=== PATIENT | male | born 1975 ===

== ENCOUNTER 2018-12-20 13:50 | Emergency (ER) | payer SELFPAY ==
[2018-12-20 13:54] VITALS: BMI 27.2
[2018-12-20 13:55] VITALS: RESP 18; TEMP 98.7
--- NOTE | 2018-12-20 14:48 | C.PDOC ---
History Of Present Illness 43 y/o male, otherwise well, presents to the ED for evaluation of rash that to the bilateral arms that began suddenly 2 days ago. On arrival he appears to have circular, slightly raised lesions that are scaly, not pruritic. The rash has now spread to his chest and neck. No fever or chills. No recent illness. Time Seen by Provider: 12/20/18 14:01 Chief Complaint (Nursing): Abnormal Skin Integrity History Per: Patient History/Exam Limitations: no limitations Onset/Duration Of Symptoms: Days Current Symptoms Are (Timing): Still Present Location Of Injury: Right: Arm, Left: Arm Quality Of Symptoms: denies: Itching Past Medical History Reviewed: Historical Data, Nursing Documentation, Vital Signs Vital Signs: Last Vital Signs Temp 98.7 F 12/20/18 13:54 Pulse 77 12/20/18 13:54 Resp 18 12/20/18 13:54 BP 142/82 12/20/18 13:54 Pulse Ox 99 12/20/18 13:54 Surgical History: Hernia Repair Other Surgeries: Orthopedic surgery Family History: States: Unknown Family Hx - Social History Hx Alcohol Use: Yes Hx Substance Use: No - Immunization History Hx Tetanus Toxoid Vaccination: No Hx Influenza Vaccination: No Hx Pneumococcal Vaccination: No Review Of Systems Constitutional: Negative for: Fever, Chills Cardiovascular: Negative for: Chest Pain Respiratory: Negative for: Cough, Shortness of Breath Gastrointestinal: Negative for: Nausea, Vomiting Skin: Positive for: Rash (to bilateral arms, chest, neck) Neurological: Negative for: Weakness, Numbness Physical Exam - Physical Exam Appears: Non-toxic, No Acute Distress Skin: Warm, Rash (Multiple raised circular, slightly dry/scaly patches to torso, back, arms, and neck) Head: Atraumatic, Normacephalic Eye(s): bilateral: Normal Inspection Neck: Normal ROM Chest: Symmetrical Cardiovascular: Rhythm Regular, No Murmur Respiratory: Normal Breath Sounds, No Accessory Muscle Use Extremity: Bilateral: Atraumatic, Normal ROM Neurological/Psych: Oriented x3, Normal Speech ED Course And Treatment O2 Sat by Pulse Oximetry: 99 (RA) Pulse Ox Interpretation: Normal Medical Decision Making Medical Decision Making: Differential Dx includes: tinea, however pattern on back is more consistent with Pityriasis Rosacea Plan: Will treat patient for rosacea. Patient will be discharged home with rx for 1% clotrimazole cream. Advised patient to follow up in the clinic. Disposition Counseled Patient/Family Regarding: Need For Followup, Rx Given - Disposition Referrals: [facility] [Outside] Disposition: HOME/ ROUTINE Disposition Time: 14:49 Condition: STABLE Prescriptions: Clotrimazole 1% Cream [Lotrimin 1%] 1 appl TP BID #1 tube Instructions: Pityriasis Rosea Forms: Gen Discharge Inst Nigerien, [facility] (Nigerien) - POA Present On Arrival: None - Clinical Impression Clinical Impression: Skin lesion, Pityriasis rosea - Scribe Statement The provider has reviewed the documentation as recorded by the Gogo Hernandez Provider Attestation: All medical record entries made by the Gogo were at my direction and personally dictated by me. I have reviewed the chart and agree that the record accurately reflects my personal performance of the history, physical exam, medical decision making, and the department course for this patient. I have also personally directed, reviewed, and agree with the discharge instructions and disposition.
[2018-12-20 14:59] VITALS: BP 130/70; PULSE 70
[2018-12-20 15:11] VITALS: O2SAT 99
== END 2018-12-20 14:59 | disposition home or self-care (01) ==
LOC: C.ER 13:50
DX: L42 Pityriasis rosea (principal); L98.9 Disorder of the skin and subcutaneous tissue, unspecified